=== PATIENT | female | born 2000 | race Caucasian/White ===

== ENCOUNTER 2024-11-27 14:56 | Emergency (ER) | payer OTHER, SELFPAY ==
[2024-11-27 15:00] VITALS: BP 130/91
[2024-11-27 15:30] VITALS: BMI 34.3
--- NOTE | 2024-11-27 15:33 | ED.GENMED ---
History of Present Illness
General
Chief Complaint: Crisis Evaluation
Source: patient and records
Exam Limitations: none
Time Seen by Provider: 11/27/24 15:25
Nursing documentation reviewed up to this point in time: agreed with
History of Present Illness
History of Present Illness:
24-year-old female with history as noted presents to the ER for evaluation of hallucinations and suicidality. Patient has been doing a partial outpatient program through [facility] for depression/suicidality. She feels that the program is helping but
she is still having severe hallucinations�she describes auditory hallucinations with commands to hurt herself. She describes voices telling her to jump in front of a car today. Was referred to the ER for crisis assessment and placement. She does
report that she ate a very small amount of hand soap yesterday but no other action towards self-harm reported. She denies any drug or alcohol use.
Review of Systems
Review of Systems
All Other Systems: ROS reviewed and negative except as documented in HPI and ROS
Respiratory: Denies trouble breathing
Cardiac: Denies chest pain
ABD/GI: Denies abdominal pain, nausea or vomiting
: Denies flank pain
Musculoskeletal: Denies neck pain or back pain
Neurological: Denies dizzy or headache
Psychiatric: Reports depression, suicidal and hallucinations
Phy Exam
Physical Exam
Physical Exam:
General: Awake, alert, oriented x3; resting comfortably nontoxic-appearing
Head: Normocephalic, atraumatic
Eyes: Conjunctiva normal, sclera anicteric, pupils midrange and symmetric bilaterally
Throat: Airway intact, handling secretions
Neck: Trachea midline, supple without meningismus
Lungs: Clear to auscultation bilaterally, no wheezing, rales, rhonchi
Heart: Regular rate and rhythm, no murmurs, gallops, or rubs
Abd: Soft, non distended, nontender
Neuro: Grossly intact
Skin: No signs of trauma
Extremities: Warm and well-perfused with no edema
Psych: Depressed mood, flattened affect
Scores
Heart Failure Risk
Heart Failure Risk Score: Not Applicable
Heart Score for Chest Pain Patients
STEMI patient?: Not applicable
Withdrawal Assessment of Alcohol
Withdrawal Assessment Completed?: Not applicable
Course
Orders/Labs/Results
Orders:
Orders
11/27/24 14:59
1:1 Observation - Suicide/ Violent Behavior As Directed
Crisis Consult Urgent
Reason for Consult: +SI
11/27/24 15:26
Drug Screen, Urine [Urine Drug Abuse Screen] Urgent
HCG, Urine Qualitative Screen Urgent
Test Result ONCE
Vital Signs
Initial and Last Documented VS:
Initial Vital Signs
Temp Pulse Resp BP Pulse Ox
36.9 C 87 18 130/91 97
11/27/24 15:00 11/27/24 15:00 11/27/24 15:00 11/27/24 15:00 11/27/24 15:00
Last Documented Vital Signs
Temp Pulse Resp BP Pulse Ox
36.9 C 87 18 130/91 97
11/27/24 15:00 11/27/24 15:00 11/27/24 15:00 11/27/24 15:00 11/27/24 15:37
MDM/Problems Addressed
Differential Diagnosis Includes:
Schizophrenia, bipolar disorder
MDM/Problems Addressed:
24-year-old female presents for evaluation of worsening hallucinations and suicidality in the setting of current partial outpatient psychiatric treatment. Vitals and exam as above. Will place on continuous observation. Case discussed with crisis
who performed assessment plan for inpatient psychiatric placement. Monitor closely reassess after the above.
Chronic conditions affecting care:
Bipolar disorder, schizophrenia
*Pulse Oximetry
SaO2: 97
Patient hypoxic: no (97%)
*Critical Care Note
Total Time (30-74mins, 75-104mins- exclusive of procedures): Not Applicable
Data Reviewed
Source: patient
Patient Management
Discussion with other providers: Other (Discussed with crisis staff)
Escalation/DeEscalation of care consider admission/obs:
Admission indicated-- inpatient psychiatric treatment
ED Attending Note
-
Portions of this chart may have been created with voice recognition software.� Occasional wrong word or��sound alike� substitutions may have occurred due to the inherent limitations of voice recognition software.
Discharge Plan
Departure
Patient Disposition: Psych Facility
Date of Disposition: 11/27/24
Time of Disposition: 15:48
Patient Status:: 201
Discharge Problem:
Hallucinations, Suicidal ideations
Interventions
Interventions:
*Risk Screen - Suicide Last Done: 11/27/24 14:58
*General Assessment Last Done: 11/27/24 15:00
*Neglect/Abuse Screening Last Done: 11/27/24 15:00
*ED- Fall Risk Assessment Last Done: 11/27/24 15:00
*ED COVID-19 Vaccine History Last Done: 11/27/24 15:00
Discharge Date and Time
Print Language: ITALIAN
--- NOTE | 2024-11-27 15:52 | EDRN ---
Received patient in bed speaking to Rachel in Crisis. Patient stated that she is hearing voices that are telling her to kill herself. Patient stated that they told her to walk in front of a car. Patient stated that she attempted to walk in front of a
car but someone stopped her. Patient stated that she drank a handful of liquid soap yesterday and today. Denies any abdominal symptoms.
[2024-11-27 17:23] LABS: HCG, Urine Qualitative Screen Negative
[2024-11-27] MEDS: ROBINUL 1 MG PO ×2 (18:28→21:17)
[2024-11-27] MEDS: BUSPAR 10 MG PO ×2 (18:28→21:16)
[2024-11-27] MEDS: RISPERDAL 3 MG PO ×2 (18:28→21:16)
[2024-11-27] MEDS: LITHOBID (EXTENDED RELEASE) 600 MG PO (21:16)
[2024-11-27] MEDS: COGENTIN 0.5 MG PO (21:17)
[2024-11-27] MEDS: INDERAL 40 MG PO (21:17)
[2024-11-27] MEDS: CLOZARIL 300 MG PO (21:17)
== END 2024-11-28 01:21 ==
LOC: EMR 14:56
PROVIDERS: EMERGENCY PHYSICIAN Emergency Medicine; FAMILY PHYSICIAN Nurse Practitioner Family
DX: R44.0 Auditory hallucinations (principal); F31.9 Bipolar disorder, unspecified
CPT/HCPCS: 99285; 80306; 80307; 81025